=== PATIENT | male | born 1975 | race African-American/Black ===

== ENCOUNTER 2022-09-15 10:52 | Emergency (ER) | payer BC ==
[~2022-09-15] VITALS: Ht 175.3 cm; Wt 154.0 kg
[2022-09-15] MEDS ORDERED: AZITHROMYCIN250 MG PO (11:46)
[2022-09-15] MEDS ORDERED: PREDNISONE20 MG PO (11:46)
[2022-09-15] MEDS ORDERED: VENTOLIN HFA18 GM INH (11:46)
[2022-09-15] MEDS ORDERED: CLONIDINE HCL 0.1 MG TAB ONE (11:58)
[2022-09-15] MEDS ORDERED: CLONIDINE HCL 0.2 MG TAB PO ONE (12:30)
== END 2022-09-15 12:22 | disposition home or self-care (01) ==
LOC: FSED 11:11
DX: H66.91 Otitis media, unspecified, right ear (principal); R05.9 Cough, unspecified; R03.0 Elevated blood-pressure reading, without diagnosis of hypertension; I10 Essential (primary) hypertension
CPT/HCPCS: 83518; 87400; 99283